=== PATIENT | female | born 1990 | race Hispanic/Latino ===

== ENCOUNTER 2017-11-30 15:36 | Emergency (ER) | payer OTHER ==
[2017-11-30] MEDS ORDERED: METOCLOPRAMIDE 10 MG/2mL INJ ONE (16:37)
[2017-11-30] MEDS ORDERED: NA CHLORIDE 0.9% 1,000 ML ONE (16:37)
[2017-11-30 16:47] LABS: Absolute Lymphocytes (CBC) 0.9 K/uL (0.7-4.9); Absolute Monocytes 0.8 K/uL (0.1-1.3); Absolute Neutrophil 6.9 K/uL (1.8-8.0); Basophils % 0.2 % (0-1.3); Eosinophils % 0.1 % (0-4.4); Hematocrit 38.3 % (36.0-45.0); Lymphocytes % 10.2 % (15.3-44.8); MCH 30.7 pg (27.0-35.0); MCV 91.4 fL (80-100); MPV 8.9 fL (7.6-11.3); Monocytes % 8.9 % (3.3-12.3); RBC Red Blood Cell Count 4.19 M/uL (3.86-4.86)
[2017-11-30 17:00] LABS: Urine Bacteria <20 /HPF (<20); Urine Culture Reflex Order NOT NEEDED; Urine RBC <5 /HPF (NONE SEEN)
[2017-11-30 17:02] LABS: Urine Blood NEGATIVE (NEG); Urine Glucose NEGATIVE (NEG); Urine Protein TRACE (NEG)
[2017-11-30 17:36] LABS: BUN Blood Urea Nitrogen 7 mg/dL (6-20); Bicarbonate 24 mEq/L (21-31); Glomerular Filtration Rate > 90 mL/min (=/>90); Glucose Level 86 mg/dL (65-120); Potassium 3.8 mEq/L (3.6-5.0); Sodium Level 132 mEq/L (135-145)
--- NOTE | 2017-11-30 17:40 | ER ---
Nurse's Notes [facility] Name: Irena Browne Age: 26 yrs Sex: Female : 1990 Arrival Date: 11/30/2017 Time: 15:44 Bed 17 Private MD: Diagnosis: Vomiting of , unspecified Presentation: 11/30 15:55 Presenting complaint: Patient states: for 3 days now, varun been throwing up and couldn't hj tolerate food and drinks; 10 week ; LMP- 08/24/17;. Transition of care: patient was not received from another setting of care. Onset of symptoms was November 30, 2017. Care prior to arrival: None. 15:55 Method Of Arrival: Ambulatory 15:55 Acuity: REBA 3 hj Triage Assessment: 15:59 Headache History: Denies prior headaches. General: Appears in no apparent distress. hj uncomfortable, Behavior is calm, cooperative, appropriate for age. Pain: Complains of pain in head Pain currently is 10 out of 10 on a pain scale. Pain began Also complains of nausea. Neuro: Level of Consciousness is awake, alert, obeys commands, Oriented to person, place, time, situation, Appropriate for age. 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 - Social history:: Smoking status: Patient/guardian denies using tobacco. Screenin:47 Abuse screen: Denies threats or abuse. Nutritional screening: No deficits noted. em Tuberculosis screening: No symptoms or risk factors identified. Fall Risk None identified. Assessment: 16:25 General: Appears in no apparent distress. comfortable, Behavior is calm, cooperative, em appropriate for age. Pain: Complains of pain in head Pain does not radiate. Pain currently is 8 out of 10 on a pain scale. Quality of pain is described as crushing, Pain began 2-3 days ago. Neuro: Level of Consciousness is awake, alert, obeys commands, Oriented to person, place, time, situation, Gait is steady, Speech is normal, Facial symmetry appears normal, Pupils are PERRLA. Cardiovascular: Capillary refill < 3 seconds Patient's skin is warm and dry. Respiratory: Airway is patent Respiratory effort is even, unlabored, Respiratory pattern is regular, symmetrical. GI: Abdomen is flat, Bowel sounds present X 4 quads. Reports nausea, vomiting. : No signs and/or symptoms were reported regarding the genitourinary system. EENT: No signs and/or symptoms were reported regarding the EENT system. Derm: Skin is intact, Skin is pink, warm \T\ dry. Musculoskeletal: Range of motion: intact in all extremities. 16:55 Reassessment: Patient appears in no apparent distress at this time. I agree with the iw above assessment by Carrillo Flanagan LVN. 17:20 Reassessment: Patient appears in no apparent distress at this time. Patient and/or em family updated on plan of care and expected duration. Pain level reassessed. Patient is alert, oriented x 3, equal unlabored respirations, skin warm/dry/pink. Patient states feeling better. Patient states symptoms have improved. 17:30 Reassessment: given water for PO challenge, tolerated well. em Vital Signs: 16:00 BP 111 / 75; Pulse 120; Resp 18; Temp 98.3(TE); Pulse Ox 100% on R/A; Weight 45.81 kg; hj Height 5 ft. 2 in. (157.48 cm); Pain 10/10; 16:47 BP 97 / 80; Pulse 101; Resp 18; Pulse Ox 99% on R/A; Pain 8/10; em 18:03 BP 105 / 68; Pulse 84; Resp 14; Pulse Ox 98% on R/A; Pain 0/10; em 16:00 Body Mass Index 18.47 (45.81 kg, 157.48 cm) ED Course: 15:44 Patient arrived in ED. mr 15:49 Kianna Farrell [facility]-C [facility] kb 15:49 Trevor King MD is Attending Physician. kb 15:57 Triage completed. hj 16:00 Arm band placed on left wrist. hj 16:15 Carrillo Flanagan LVN is Primary Nurse. em 16:30 No provider procedures requiring assistance completed. Initial lab(s) drawn, by me, em sent to lab. Inserted saline lock: 20 gauge in right antecubital area, using aseptic technique. Blood collected. 16:47 Patient has correct armband on for positive identification. Bed in low position. Call em light in reach. Side rails up X2. Adult w/ patient. 18:04 IV discontinued, intact, bleeding controlled, No redness/swelling at site. Pressure em dressing applied. Administered Medications: 16:28 Drug: NS 0.9% 1000 ml Route: IV; Rate: 1000 ml; Site: right antecubital; em 18:05 Follow up: IV Status: Completed infusion; IV Intake: 1000ml em 16:30 Drug: Reglan 10 mg Route: IVP; Site: right antecubital; iw 17:10 Follow up: Response: No adverse reaction; Pain is decreased; Nausea is decreased em Intake: 18:05 IV: 1000ml; Total: 1000ml. em Outcome: 17:39 Discharge ordered by MD. kb 18:04 Discharged to home ambulatory, with family. em 18:04 Condition: good 18:04 Discharge instructions given to patient, Instructed on discharge instructions, follow up and referral plans. medication usage, Demonstrated understanding of instructions, follow-up care, medications, Prescriptions given X 1. 18:04 Patient left the ED. em Signatures: Kianna Farrell, TEZ-C SHELLFISH BED WORKER-[place] Arce mr FlanaganCarrillo, ELEMENTARY READING TUTOR ELEMENTARY READING TUTOR em Edith Lozano, RN RN iw Aris Roa, FADY RN Corrections: (The following items were deleted from the chart) 16:52 16:47 BP 97 / 80; Resp 18bpm; Pulse Ox 99% RA; Pain 8/10; em em
--- NOTE | 2017-11-30 17:40 | EDPHYS ---
Physician Documentation [facility] Name: Irena Browne Age: 26 yrs Sex: Female : 1990 Arrival Date: 11/30/2017 Time: 15:44 Bed 17 Private MD: ED Physician Trevor King HPI: 11/30 16:01 This 26 yrs old Female presents to ER via Ambulatory with complaints of kb Headache, Vomiting, Decreased Appetite, 10 wks . 16:01 The patient presents to the emergency department with nausea and vomiting, that started kb 3 day(s) ago. The estimated gestational age is 10 weeks. course: care: at a clinic, Leakage of Fluid: none appreciated, Ultrasound: the patient has not had an ultrasound, Risk/complications: no obvious risks or complications are appreciated. Previous pregnancies: the patient has never been . Associated signs and symptoms: Pertinent positives: nausea, vomiting. The patient has not experienced similar symptoms in the past. The patient has not recently seen a physician. Pt states she has had morning sickness during this , but for the last 3 days it has been worse and she hasn't been able to tolerate anything. States she went to her OB, but they didn't do anything. Denies abd pain or vaginal bleeding. 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 - Social history:: Smoking status: Patient/guardian denies using tobacco. ROS: 16:01 Constitutional: Negative for fever, chills, and weight loss, Cardiovascular: Negative kb for chest pain, palpitations, and edema, Respiratory: Negative for shortness of breath, cough, wheezing, and pleuritic chest pain, Back: Negative for injury and pain, : Negative for injury, bleeding, discharge, and swelling, MS/Extremity: Negative for injury and deformity, Skin: Negative for injury, rash, and discoloration, Neuro: Negative for headache, weakness, numbness, tingling, and seizure. 16:01 Abdomen/GI: Positive for nausea and vomiting, Negative for abdominal pain, diarrhea, constipation, abdominal cramps, abdominal distension, anorexia. Exam: 16:01 Constitutional: This is a well developed, well nourished patient who is awake, alert, kb and in no acute distress. Head/Face: Normocephalic, atraumatic. Chest/axilla: Normal chest wall appearance and motion. Nontender with no deformity. No lesions are appreciated. Cardiovascular: Regular rate and rhythm with a normal S1 and S2. No gallops, murmurs, or rubs. Normal PMI, no JVD. No pulse deficits. Respiratory: Lungs have equal breath sounds bilaterally, clear to auscultation and percussion. No rales, rhonchi or wheezes noted. No increased work of breathing, no retractions or nasal flaring. Abdomen/GI: Soft, non-tender, with normal bowel sounds. No distension or tympany. No guarding or rebound. No evidence of tenderness throughout. Skin: Warm, dry with normal turgor. Normal color with no rashes, no lesions, and no evidence of cellulitis. MS/ Extremity: Pulses equal, no cyanosis. Neurovascular intact. Full, normal range of motion. Neuro: Awake and alert, GCS 15, oriented to person, place, time, and situation. Cranial nerves II-XII grossly intact. Motor strength 5/5 in all extremities. Sensory grossly intact. Cerebellar exam normal. Normal gait. Vital Signs: 16:00 BP 111 / 75; Pulse 120; Resp 18; Temp 98.3(TE); Pulse Ox 100% on R/A; Weight 45.81 kg; hj Height 5 ft. 2 in. (157.48 cm); Pain 10/10; 16:47 BP 97 / 80; Pulse 101; Resp 18; Pulse Ox 99% on R/A; Pain 8/10; em 18:03 BP 105 / 68; Pulse 84; Resp 14; Pulse Ox 98% on R/A; Pain 0/10; em 16:00 Body Mass Index 18.47 (45.81 kg, 157.48 cm) MDM: 16:00 Patient medically screened. 16:01 Data reviewed: vital signs, nurses notes. Data interpreted: Pulse oximetry: on room air kb is 100 %. Interpretation: normal. 17:38 Counseling: I had a detailed discussion with the patient and/or guardian regarding: the kb historical points, exam findings, and any diagnostic results supporting the discharge/admit diagnosis, lab results, the need for outpatient follow up, an OB/Gyne specialist, to return to the emergency department if symptoms worsen or persist or if there are any questions or concerns that arise at home. 11/30 16:00 Order name: CBC with Diff kb 11/30 16:00 Order name: Basic Metabolic Panel kb 11/30 16:00 Order name: Urine Microscopic Only kb 11/30 16:54 Order name: Urine Dipstick--Ancillary (enter results) ms 11/30 16:54 Order name: Urine --Ancillary (enter results) ms 11/30 16:54 Order name: CBC with Automated Diff; Complete Time: 16:59 EDMS 11/30 16:00 Order name: IV Start; Complete Time: 16:28 kb 11/30 17:00 Order name: Test, Serum kb 11/30 17:00 Order name: Urine Microscopic Only; Complete Time: 17:03 EDMS 11/30 17:02 Order name: Urine --Ancillary; Complete Time: 17:03 EDMS 11/30 17:02 Order name: Urine Dipstick-Ancillary; Complete Time: 17:03 EDMS 11/30 17:36 Order name: Basic Metabolic Panel; Complete Time: 17:38 EDMS 11/30 16:00 Order name: Urine Test (obtain specimen); Complete Time: 16:29 kb 11/30 16:00 Order name: Urine Dipstick-Ancillary (obtain specimen); Complete Time: 16:28 kb 11/30 17:03 Order name: PO challenge; Complete Time: 18:02 kb Administered Medications: 16:28 Drug: NS 0.9% 1000 ml Route: IV; Rate: 1000 ml; Site: right antecubital; em 18:05 Follow up: IV Status: Completed infusion; IV Intake: 1000ml em 16:30 Drug: Reglan 10 mg Route: IVP; Site: right antecubital; iw 17:10 Follow up: Response: No adverse reaction; Pain is decreased; Nausea is decreased em Disposition: 12/01 07:21 Co-signature as Attending Physician, Trevor King MD I agree with the assessment and kdr plan of care. Disposition: 11/30/17 17:39 Discharged to Home. Impression: Vomiting of , unspecified. - Condition is Stable. - Discharge Instructions: Morning Sickness, Luqw-er-Uren. - Prescriptions for Diclegis 10- 10 mg Oral tablet,delayed release (DR/EC) - take 1 tablet by ORAL route once daily As needed; 10 tablet. - Medication Reconciliation Form, Thank You Letter, Antibiotic Education, Prescription Opioid Use form. - Follow up: Emergency Department; When: As needed; Reason: Worsening of condition. Follow up: Private Physician; When: 2 - 3 days; Reason: Recheck today's complaints, Continuance of care, Re-evaluation by your physician. Signatures: Dispatcher [employer] EDMS Kianna Farrell, SINGING MESSENGER-C SINGING MESSENGER-Ckb Trevor King MD MD kdr Munoz, Edgar, SUPERVISING FIRE MARSHAL SUPERVISING FIRE MARSHAL Edith Platt, Aris Lorenzana RN, RN RN Corrections: (The following items were deleted from the chart) 11/30 16:05 16:01 Pt states she has had morning sickness during this , but for the last 3 kb days it has been worse and she hasn't been able to tolerate anything. States she went to her OB, but they didn't do anything. . kb
== END 2017-11-30 18:04 | disposition home or self-care (01) ==
LOC: ER 15:36
DX: O21.9 Vomiting of pregnancy, unspecified (principal); Z3A.10 10 weeks gestation of pregnancy
CPT/HCPCS: 36415; 80048; 81003; 81015; 81025; 85025; 96361; 96374; 99284; J2765; J7030